=== PATIENT | male | born 2000 | race African-American/Black ===

== ENCOUNTER 2020-02-18 19:54 | Emergency (ER) | payer BC ==
[~2020-02-18] VITALS: Ht 190.5 cm; Wt 99.6 kg
[2020-02-18] MEDS ORDERED: FENTANYL PF 100 MCG/2ML IV ONE (21:30)
[2020-02-18 21:31] VITALS: BP 147/70
== END 2020-02-18 21:39 | disposition home or self-care (01) ==
LOC: ED 20:57
DX: S86.111A Strain of other muscle(s) and tendon(s) of posterior muscle group at lower leg level, right leg, initial encounter (principal); X58.XXXA Exposure to other specified factors, initial encounter; Y93.89 Activity, other specified; Y92.89 Other specified places as the place of occurrence of the external cause; Y99.8 Other external cause status
CPT/HCPCS: 99284